=== PATIENT | male | born 1955 | race Caucasian/White ===

== ENCOUNTER → 2019-11-12 07:13 | Outpatient (CLI) | payer MEDICARE, SELFPAY ==
--- NOTE | ~2019-11-12 | MR_ITS ---
EXAMINATION: MR lumbar spine wo con EXAM DATE: 11/12/2019 07:56 INDICATION: Low back pain and bilateral leg pain. Previous low back surgery 20 years ago. TECHNIQUE: Multi-sequential, multiplanar MR images of the lumbar spine were obtained without contrast . Sagittal T1, T2, T2 fat saturation images. Axial T2 weighted images. Comparison is made to prior examination from 12/24/2014. FINDINGS: There is 2-3 mm anterolisthesis L4 on L5 with mild disc disease at this level and at L1-2. The vertebral bodies are otherwise aligned. Mild diffuse lower thoracic disc disease. The conus medul marily terminates at the T12-L1 level and has normal signal intensity and morphology. Diffusion-weigh ezio disc replacement at the L5-S1 level. Several small hemangiomas in the vertebral bodies. There are no suspicious marrow signal abnormalities. Level by level evaluation: T12-L1: Disc does not extend beyond the endplate margin. Facet arthropathy: Minimal. Neural foraminal stenosis: No stenosis. Central canal stenosis: No stenosis. L1-L2: There is a mild diffuse disc bulge. Facet arthropathy: Mild. Neural foraminal stenosis: Mild left. Central canal stenosis: No stenosis. L2-L3: There is a mild diffuse disc bulge. Facet arthropathy: Mild to moderate. Neural foraminal stenosis: Minimal left. Central canal stenosis: No stenosis. L3-L4: There is a mild diffuse disc bulge. Facet arthropathy: Mild to moderate. Neural foraminal stenosis: Mild bilateral. Central canal stenosis: Mild. L4-L5: There is a mild to moderate diffuse disc bulge. Facet arthropathy: Moderate to severe. Neural foraminal stenosis: Moderate left, mild to moderate right. Central canal stenosis: Mild to moderate. L5-S1: This level is fused. Facet arthropathy: Mild to moderate. Neural foraminal stenosis: No stenosis. Central canal stenosis: No stenosis. Laminectomies, posterior decompression. IMPRESSION: 1. L5-S1 surgical changes. 2. Overall mild to moderate lumbar spondylosis. Reviewed, dictated and finalized at location A. TE TEACHER
== END ==
PROVIDERS: Visit Provider Orthopaedic Surgery
DX: M54.42 Lumbago with sciatica, left side (principal); G89.29 Other chronic pain; M47.896 Other spondylosis, lumbar region
CPT/HCPCS: 72148

== ENCOUNTER → 2020-08-24 11:16 | Outpatient (CLI) | payer MEDICARE, SELFPAY ==
--- NOTE | ~2020-08-24 | CT_ITS ---
EXAMINATION: CT abdomen pelvis w con DATE: 08/24/2020 11:45 INDICATION: Lower abdominal pain TECHNIQUE: Computed tomography (CT) of the abdomen and pelvis was performed with 100 cc Omnipaque 350 intravenous contrast. The dose-length product was 567.67 mGy-cm. Automated exposure control and iter ative reconstruction technique were employed. COMPARISON: None. FINDINGS: Lung bases are unremarkable. No significant pleural or pericardial effusion. Heart size is normal. The liver, spleen, pancreas, adrenal glands and kidneys are unremarkable. Gallbladder is pres ent. No hydronephrosis. Prostate gland is enlarged. Nonobstructive bowel gas pattern. No evidence for appendicitis or diverticulitis. No free air or free fluid. There is a right total hip arthroplasty. No acute osseous abnormality there is grade 1 degenerative spondylolisthesis at L4-5. There is a pros thetic disc device at L5-S1. IMPRESSION: 1. No acute abdominal abnormality. Reviewed, dictated and finalized at location B. WEIGHER
[2020-08-24 11:33] LABS: Estimated Glomerular Filt Rate > 60
== END ==
PROVIDERS: PCP Student in an Organized Health Care Education/Training Program; Visit Provider Student in an Organized Health Care Education/Training Program
DX: R10.30 Lower abdominal pain, unspecified (principal)
CPT/HCPCS: 74177; Q9967

== ENCOUNTER 2024-09-20 09:49 | Outpatient (CLI) | payer MEDICARE, SELFPAY ==
--- NOTE | ~2024-09-20 | MR_ITS ---
EXAMINATION: MR shoulder LT wo con DATE: 09/20/2024 10:32 INDICATION: Left shoulder pain. Osteoarthritis. TECHNIQUE: Magnetic resonance imaging (MRI) of the left shoulder was performed without intravenous co ntrast. Sequences included axial PD-weighted FS FSE, coronal oblique PD-weighted FS FSE, coronal obli que T2-weighted FS FSE, sagittal PD-weighted FS FSE, and sagittal T1-weighted SE. COMPARISON: None. FINDINGS: Coracoacromial arch: The acromion undersurface is curved in morphology (type II). Tiny anterior subacromial spur at the in sertion of the normal coracoacromial ligament. Moderate acromioclavicular osteoarthritis. Rotator cuff: Moderate subscapularis, supraspinatus and infraspinatus tendinopathy without tear. The teres minor te ndon is normal. Normal rotator cuff muscle bulk and signal. Biceps tendon, glenoid labrum and glenohumeral cartilage: Mild tendinopathy of the long head of the biceps tendon without discrete tear. There is diffuse degen erative tearing of the glenoid labrum including degeneration without detachment of the glenoid anchor of the biceps labral complex. There is severe glenohumeral osteoarthritis with extensive full and ne ar full-thickness cartilage loss involving all but the anterior most glenoid. There is secondary brittany deling of the glenoid with mild acquired retroversion and prominent marginal osteophytes extending po steriorly from the posterior rim of the glenoid. There is additional deep chondral ulceration with as sociated mild cortical irregularity and subarticular cystlike changes at the posterior superior aspec t of the humeral head. Additional moderate sized marginal osteophytes along the humeral head. Fluid: Small glenohumeral joint effusion with proportional extension of small amount of fluid along the long head biceps tendon sheath. No loose osteochondral bodies. There is small amount of fluid in the suba cromial/subdeltoid bursa consistent with mild bursitis. Bones: Bone alignment is normal. No fracture or pathologic marrow replacing process. Cystic and hypertrophic changes along the greater tuberosity consistent with sequela of chronic rotator cuff disease. IMPRESSION: 1. Severe glenohumeral osteoarthritis with diffuse labral degeneration including of the biceps labral complex. 2. Moderate subscapularis, supraspinatus and infraspinatus tendinopathy without discrete tear. 3. Moderate acromioclavicular osteoarthritis with mild underlying subacromial/subdeltoid bursitis. Reviewed, dictated and finalized at location B. 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 Severe glenohumeral osteoarthritis with diffuse labral degeneration includin g of the biceps labral complex. 2. Moderate subscapularis, supraspinatus and infraspinatus tendinopathy without discrete tear. 3. Moderate acromioclavicular osteoarthritis with mild underlying subacromial/s ubdeltoid bursitis.
== END 2024-09-20 09:50 | disposition home or self-care (01) ==
LOC: GOSHIMG 09:50
PROVIDERS: PCP Student in an Organized Health Care Education/Training Program
DX: M19.012 Primary osteoarthritis, left shoulder (principal); S43.432A Superior glenoid labrum lesion of left shoulder, initial encounter; M65.912 Unspecified synovitis and tenosynovitis, left shoulder; M75.122 Complete rotator cuff tear or rupture of left shoulder, not specified as traumatic
CPT/HCPCS: 73221

== ENCOUNTER 2025-05-23 10:16 | Outpatient (CLI) | payer MEDICARE, SELFPAY ==
--- NOTE | ~2025-05-23 | US_ITS ---
EXAMINATION: US aorta [facility] DATE: 05/23/2025 13:55 CDT INDICATION: Screening for abdominal aortic aneurysm TECHNIQUE: Grayscale, color Doppler, and pulsed Doppler images of the aorta and common iliac arteries were obtained. COMPARISON: None. FINDINGS: The proximal aorta measures 2.1 cm greatest sagittal dimension. The mid aorta measures 2.7 cm greatest sagittal dimension. The distal aorta measures 1.8 cm greatest sagittal dimension. The right common internal iliac artery measures 1.2 cm. The left common iliac artery measures 1.4 cm. IMPRESSION: 1. Mild aortic ectasia without evidence for aneurysm. Reviewed, dictated and finalized at location O.
== END 2025-05-23 10:17 | disposition home or self-care (01) ==
LOC: GOSHIMG 10:16
PROVIDERS: PCP Student in an Organized Health Care Education/Training Program; Visit Provider Student in an Organized Health Care Education/Training Program
DX: Z13.6 Encounter for screening for cardiovascular disorders (principal); I77.819 Aortic ectasia, unspecified site
CPT/HCPCS: 76706